=== PATIENT | female | born 1985 | race Caucasian/White ===

== ENCOUNTER 2016-09-22 13:59 | Emergency (ER) | payer MEDICAID ==
[~2016-09-22] VITALS: Ht 162.6 cm; Wt 89.2 kg
[2016-09-22 15:55] VITALS: BP 141/106
== END 2016-09-22 15:55 | disposition home or self-care (01) ==
LOC: ED 13:59
DX: N12 Tubulo-interstitial nephritis, not specified as acute or chronic (principal); R03.0 Elevated blood-pressure reading, without diagnosis of hypertension
CPT/HCPCS: J0696; J1885; J2405; J7030

== ENCOUNTER 2018-10-23 11:40 | Emergency (ER) | payer MEDICAID ==
[~2018-10-23] VITALS: Ht 160 cm; Wt 80.3 kg
[2018-10-23 11:44] VITALS: Ht 160 cm; Wt 80.3 kg
[2018-10-23 14:04] VITALS: BP 149/97
== END 2018-10-23 14:04 | disposition home or self-care (01) ==
LOC: ED 11:40
DX: K04.7 Periapical abscess without sinus (principal)
CPT/HCPCS: J0295; J1885

== ENCOUNTER 2018-12-19 14:58 | Emergency (ER) | payer OTHER ==
[~2018-12-19] VITALS: Ht 157.5 cm; Wt 83.5 kg
[2018-12-19 15:27] VITALS: Ht 157.5 cm; Wt 83.5 kg
[2018-12-19 18:19] VITALS: BP 148/101
== END 2018-12-19 18:19 | disposition home or self-care (01) ==
LOC: ED 14:58
DX: S61.511A Laceration without foreign body of right wrist, initial encounter (principal); W26.8XXA Contact with other sharp object(s), not elsewhere classified, initial encounter; Y93.89 Activity, other specified; Y92.89 Other specified places as the place of occurrence of the external cause; Y99.8 Other external cause status
CPT/HCPCS: J2001

== ENCOUNTER 2018-12-20 10:08 | Emergency (ER) | payer OTHER | END 2018-12-20 10:58 | disposition left against medical advice (07) | LOC: ED 10:08 | DX: Z53.21 Procedure and treatment not carried out due to patient leaving prior to being seen by health care provider (principal) ==

== ENCOUNTER 2019-09-15 09:15 | Emergency (ER) | payer SELFPAY ==
[~2019-09-15] VITALS: Ht 160 cm; Wt 83.5 kg
[2019-09-15 09:27] VITALS: Ht 160 cm; Wt 83.5 kg
[2019-09-15 13:02] VITALS: BP 121/60
== END 2019-09-15 13:02 | disposition home or self-care (01) ==
LOC: ED 09:15
DX: K04.7 Periapical abscess without sinus (principal)